=== PATIENT | male | born 1975 | race Hispanic/Latino ===

== ENCOUNTER → 2017-05-01 | Outpatient (CLI) | payer SELFPAY | LOC: YCFC.O 10:00 | PROVIDERS: ATTEND Nurse Practitioner Family | DX: R50.9 Fever, unspecified (principal) ==

== ENCOUNTER 2018-07-30 09:49 | Emergency (ER) | payer SELFPAY ==
[2018-07-30] MEDS ORDERED: TETRACAINE HCL 0.5% OPHTH SOL 1 DROP ONE (09:56)
[2018-07-30 10:22] VITALS: BP 135/77; TEMP 97.6; O2SAT 96
--- NOTE | 2018-07-30 10:22 | ED.PDOC ---
History of Present Illness - General Chief Complaint: Eye Problems Time Seen by Provider: 07/30/18 10:20 Source: patient Exam Limitations: no limitations - History of Present Illness Initial Comments: the patient is a 43-year-old male presenting to the emergency room seconda getting a piece of hot metal in his left eye affecting his vision somewhat. He does have chronic decreased vision from his right eye. On examination the patient has a very small less than 1 mm piece of hard metal embedded in the left cornea at approximately the 9 o'clock position slightly medial to the center of the field of view. Tetracaine drops were used for the exam. A 20-gauge needle was used for removal of the fragment of metal. There is a mild oxidation burn present that will have to heal over time. Timing/Duration: 1 hour Severity: mild Improving Factors: nothing Worsening Factors: nothing Associated Symptoms: denies symptoms Allergies/Adverse Reactions: Allergies NO KNOWN ALLERGY Allergy (Verified 10/03/15 08:54) Home Medications: Ambulatory Orders Tramadol HCl 50 mg PO Q6HR PRN #20 tab 10/03/15 Review of Systems - Review of Systems Constitutional: States: no symptoms reported EENTM: States: see HPI Respiratory: States: no symptoms reported Cardiology: States: no symptoms reported Gastrointestinal/Abdominal: States: no symptoms reported Genitourinary: States: no symptoms reported Musculoskeletal: States: no symptoms reported Skin: States: no symptoms reported Neurological: States: no symptoms reported Endocrine: States: no symptoms reported All other Systems: No Change from Baseline Past Medical History (General) - Patient Medical History Hx Stroke: No Hx Dementia: No Hx Asthma: No Hx Cardiac Disorders: No Hx Congestive Heart Failure: No Hx Thyroid Disease: No Surgical History: no surgical history - Vaccination History Hx Tetanus, Diphtheria Vaccination: Yes Hx Influenza Vaccination: No Hx Pneumococcal Vaccination: No - Social History Hx Tobacco Use: No Hx Alcohol Use: No Hx Substance Use: No Hx Substance Use Treatment: No Hx Depression: No - Female History Patient : No Family Medical History - Family History Mother Family History: Unknown Physical Exam - Physical Exam General Appearance: Alert, Comfortable, No apparent distress Eye Exam: left other - see history of present illness Ears, Nose, Throat: normal ENT inspection Neck: full range of motion Respiratory: no respiratory distress, no accessory muscle use Cardiovascular/Chest: normal peripheral pulses, no edema Peripheral Pulses: radial,right: 2+, radial,left: 2+ Rectal Exam: deferred Extremity: normal range of motion, no pedal edema Neurologic: chair caner II-XII nml as tested, alert, normal mood/affect, oriented x 3 Skin Exam: normal color Comments: Vital Signs - 24 hr 07/30/18 09:50 Temperature 97.6 F Pulse Rate [ 65 left brachial] Respiratory 16 Rate Blood Pressure 135/77 [left brachial] O2 Sat by Pulse 96 Oximetry Progress - Progress Progress: 07/30/18 10:23 the patient is a 43-year-old male presenting to emergency room secondary to getting a small fragment of hot metal in his left eye. No evidence of perforation of the globe. Tetracaine drops were used for the exam and the small fragment of metal was removed with a needle. Patient tolerated the procedure well. He is going to be placed on eyedrops for the next week. He does need follow-up with his primary care doctor or an leave specialist in the coming week for reevaluation and also to address chronic vision changes. ER warnings are given for any acute worsening. Patient tolerated the procedure well. Departure - Departure Clinical Impression: Non-penetrating eye injury Qualifiers: Encounter type: initial encounter Laterality: left Qualified Code(s): S05.92XA - Unspecified injury of left eye and orbit, initial encounter Corneal abrasion Qualifiers: Encounter type: initial encounter Laterality: left Qualified Code(s): S05.02XA - Injury of conjunctiva and corneal abrasion without foreign body, left eye, initial encounter Disposition: Discharge to Home or Self Care Condition: Fair Departure Forms: ED Discharge - Pt. Copy, Patient Portal Self Enrollment Diet: regular diet Activity: increase activity as tolerated Referrals: Lurdes Gray NP [Primary Care Provider] - 1-2 Weeks Home Medications: Ambulatory Orders Tramadol HCl 50 mg PO Q6HR PRN #20 tab 10/03/15 Additional Instructions: the patient is a 43-year-old male presenting to emergency room secondary to getting a small fragment of hot metal in his left eye. No evidence of perforation of the globe. Tetracaine drops were used for the exam and the small fragment of metal was removed with a needle. Patient tolerated the procedure well. He is going to be placed on eyedrops for the next week. He does need follow-up with his primary care doctor or an leave specialist in the coming week for reevaluation and also to address chronic vision changes. ER warnings are given for any acute worsening. Patient tolerated the procedure well.
== END 2018-07-30 10:33 | disposition home or self-care (01) ==
LOC: ER 09:49
DX: T15.02XA Foreign body in cornea, left eye, initial encounter (principal); Y99.0 Civilian activity done for income or pay; Y92.69 Other specified industrial and construction area as the place of occurrence of the external cause